=== PATIENT | female | born 1950 | race Caucasian/White ===

== ENCOUNTER 2021-08-26 07:41 | Inpatient (IN) | payer MEDICARE, OTHER ==
[2021-08-25 11:21] LABS: BASOPHILS % (AUTO) 0.4 % (0-1)
[2021-08-25 11:22] LABS: CLARITY,URINE CLEAR (Clear); COLOR,URINE YELLOW (Yellow); GLUCOSE, URINE NEGATIVE (Neg); KETONES,URINE NEGATIVE (Neg); OCCULT BLOOD,URINE TRACE-LYSED (Neg); PROTEIN,URINE Negative (Neg); UA COLLECTION TYPE CLN CATCH MIDSTREAM
[2021-08-25 11:23] LABS: EOSINOPHILS % (AUTO) 0.7 % (0-6); LYMPHOCYTES # (AUTO) 1.6 X10'3 (1.1-4.8); LYMPHOCYTES % (AUTO) 26.6 % (21-51); MEAN CORPUSCULAR HEMOGLOBIN 30.3 PG (27.0-31.0); MEAN CORPUSCULAR VOLUME 89.2 FL (78-98); MONOCYTES # (AUTO) 0.4 X10'3 (0-0.9); MONOCYTES % (AUTO) 6.5 % (2-12); NEUTROPHILS # (AUTO) 3.8 X10'3 (1.8-7.7); NEUTROPHILS % (AUTO) 65.8 % (42-75); PRE OP HEMATOCRIT 44.5 % (35.0-45.0); PRE OP HEMOGLOBIN 15.1 g/dL (12.0-16.0); PRE OP PLATELET COUNT 281 X10'3 (140-440); RED BLOOD COUNT 4.99 X10'6 (4.20-5.60); RED CELL DISTRIBUTION WIDTH 12.7 % (11.5-14.5)
[2021-08-25 11:23] LABS: LEUKOCYTE ESTERASE ,URINE NEGATIVE (Neg); NITRITES, URINE NEGATIVE (Neg); UROBILINOGEN,URINE 0.2 E.U/dL (0.2-1.0)
[2021-08-25 11:31] LABS: BACTERIA,URINE NONE SEEN /HPF (Neg); RBC,URINE NONE SEEN /HPF (0-2); SQUAMOUS EPITHELIAL CELL,UR FEW /LPF (FEW); WBC,URINE NONE SEEN /HPF (0-4)
[2021-08-25 11:44] LABS: ALBUMIN/GLOBULIN RATIO 1.1 (1.1-1.5); ALKALINE PHOSPHATASE 79 IU/L (46-116); BLOOD UREA NITROGEN 17 MG/DL (7-18); BUN/CREATININE RATIO 23.3 (6.6-38.0); CALCIUM 8.8 MG/DL (8.5-10.1); CHLORIDE 106 MMOL/L (99-107); CREATININE 0.73 MG/DL (0.40-0.90); PRE OP ALT 31 U/L (30-65); PRE OP ANION GAP 10 (8-16); PRE OP AST 21 U/L (10-37); PRE OP BILIRUB, TOTAL 0.7 MG/DL (0.0-1.0); PRE OP GLUCOSE 101 MG/DL (70-104); PRE OP POTASSIUM 3.8 MMOL/L (3.4-5.1); PRE OP SODIUM 143 MMOL/L (135-145); TOTAL CARBON DIOXIDE 26.9 MMOL/L (24-32); TOTAL PROTEIN 7.6 G/DL (6.4-8.2); eGFR 79 ML/MIN
[~2021-08-26] VITALS: Ht 167.6 cm; Wt 74.1 kg
[2021-08-26] VITALS (19 sets, daily range): BP systolic 90–152; BP diastolic 47–76
[~2021-08-26 07:41] MED LIST: CHOL100025 PO; MELA5TAB12 PO; MULT-1130 PO; cefazolin/dext.iso 2gm/50ml 50 ML IV ONE; famotidine 20mg tablet PO ONE; ringers solution, lacted 1,000 ML IV SCH
[2021-08-26] MEDS ORDERED: midazolam 1 mg/ML 2ml injection ONE (10:08)
[2021-08-26] MEDS ORDERED: fentaNYL /PF 50mcg/ml 5ml ampule ONE (10:29)
[2021-08-26] MEDS ORDERED: BUPIVAcaine/PF 2.5 mg/ml (0.25%) 30ml vial IJ ONE (10:59)
[2021-08-26] MEDS ORDERED: meperidine/PF 25mg/ml syringe IV PRN ×3 (11:20)
[2021-08-26] MEDS ORDERED: proCHLORperazine 10 MG/2 ml inj IV PRN (11:20)
[2021-08-26] MEDS ORDERED: ondansetron/PF 4mg/2ml inj IV PRN ×2 (11:20→14:35)
[2021-08-26] MEDS ORDERED: morphine 2 MG/ML inj. syringe IV PRN (11:20)
[2021-08-26] MEDS ORDERED: acetaminophen 1,000mg/100ml IV 100 ML IV PRN (11:20)
[2021-08-26] MEDS ORDERED: morphine 4 MG/ML inj SYRINge IV PRN (11:20)
[2021-08-26] MEDS ORDERED: ringers solution, lacted 1,000 ML IV SCH ×2 (11:20→14:35)
[2021-08-26] MEDS ORDERED: labetalol 20mg/4ml (5mg/ml) syringe IV PRN (11:20)
[2021-08-26] MEDS ORDERED: hydrALAZINE 20mg/ml inj. IV PRN (11:20)
[2021-08-26] MEDS ORDERED: ceFOXitin 1000 MG inj ONE ×2 (11:37)
[2021-08-26] MEDS ORDERED: propofol inj 20 ML IV ONE (11:37)
[2021-08-26] MEDS ORDERED: atropine 0.4 mg/ml 20ml vial ONE (11:38)
[2021-08-26] MEDS ORDERED: dexamethasone sod phosphate 4mg/ml inj. ONE (11:38)
[2021-08-26] MEDS ORDERED: glycopyrrolate 0.2mg/ml inj ONE (11:38)
[2021-08-26] MEDS ORDERED: ondansetron/PF 4mg/2ml inj ONE (11:38)
[2021-08-26] MEDS ORDERED: LIDOcaine 2% (20mg/ml) 5ml vial ONE (11:38)
[2021-08-26] MEDS ORDERED: rocuronium 10mg/ml inj IV ONE (11:38)
[2021-08-26] MEDS ORDERED: BUPIVACAINE liposomal/PF 13.3 MG/ML vial IM ONE (11:52)
[2021-08-26] MEDS ORDERED: LIDOcaine 1% 30ml preserv. free vial ONE (11:52)
[2021-08-26] MEDS ORDERED: BUPIVAcaine/PF 2.5mg/ml (0.25%) 10ml vial ONE (11:57)
[2021-08-26] MEDS ORDERED: neostigmine methylsulfate 1 MG/ML 10ml vial ONE (11:57)
--- NOTE | 2021-08-26 12:30 | NUR ---
PT HR 35 DR SMITH AT BEDSIDE ATROPINE 1ML GIVEN. BP STABLE CONT TO MONITOR. Addendum: 08/26/21 at 1456 by Violet Horn RN Amended: Links added.
--- NOTE | 2021-08-26 12:45 | NUR ---
PT HR IN 30'S REGULAR ASYMPTOMATIC DR SMITH NOTIFIED ATROPEN GIVEN. NO DISTRESS CONT TO MONITOR. Addendum: 08/26/21 at 1255 by Violet Horn RN Amended: Links added.
--- NOTE | 2021-08-26 13:10 | NUR ---
HR CONT TO STAY SB 30-40 PT AWAKE TO NAME BP STABLE ATROPINE 1ML GIVEN. Addendum: 08/26/21 at 1457 by Violet Horn RN Amended: Links added.
[2021-08-26] MEDS ORDERED: atropine 1 MG/1 ML vial IV ONE (13:50)
[2021-08-26] MEDS ORDERED: atropine 0.1mg/ml 10ml syringe ONE (13:51)
[2021-08-26] MEDS ORDERED: acetaminophen 325mg tablet PO PRN ×2 (14:35)
[2021-08-26] MEDS ORDERED: LIDOcaine 2% 10ml TOPICAL JELLY (Urojet) TP ONE (14:35)
[2021-08-26] MEDS ORDERED: HYDROcodone/acetaminophen 5mg/325mg tablet PO PRN (14:35)
--- NOTE | 2021-08-26 14:51 | NUR ---
PT RESTING COMFORTABLE HR LOW CALL PLACED TO DR CANTOR ORDERS TO ADMIT TO PCU RECEIVED. PLACING PT ON TELE BED ASSIGNMENT RECEIVED. Addendum: 08/26/21 at 1452 by Violet Horn RN Amended: Links added.
--- NOTE | 2021-08-26 18:37 | NUR ---
Problems reprioritized. Patient report given, questions answered & plan of care reviewed with ANJEL Gomez. Addendum: 08/26/21 at 1843 by Faina Hudson RN Gave report to ANJEL Walker not ANJEL Gomez
--- NOTE | 2021-08-26 18:40 | NUR ---
Patient in room PCU 3025. I have received report from ANJEL Eisenberg and had the opportunity to ask questions and assume patient care. Patient [id number] currently sitting in bed . Denies pain or discomfort. in no apparent distress. Dressings to abdomen CDI. abdomen soft. Bowel sound present on auscultation. Family at bedside. All safety measures maintained. Will continue monitor
[2021-08-26] MEDS: HYDROcodone/acetaminophen 10/325mg tab PO PRN (21:02)
[2021-08-27 02:00] VITALS: BP 131/62
[2021-08-27] MEDS: HYDROcodone/acetaminophen 10/325mg tab PO PRN (03:38)
--- NOTE | 2021-08-27 06:24 | NUR ---
Patient in room PCU 3025. I have received report from ANJEL Walker and had the opportunity to ask questions and assume patient care.
[2021-08-27 07:00] VITALS: BP 112/51
[2021-08-27 11:00] VITALS: BP 130/55
--- NOTE | 2021-08-27 12:00 | NUR ---
Removed davey catheter per Dr Burns, no signs of discomfort noted. Encouraged pt void every 30 minutes. Will continue to monitor.
[2021-08-27 15:00] VITALS: BP 142/59
[2021-08-27 18:00] VITALS: BP 144/57
--- NOTE | 2021-08-27 18:27 | NUR ---
Problems reprioritized. Patient report given, questions answered & plan of care reviewed with ANJEL Aaron. Pt sitting up in bed watching tv comfortably. All pt needs met at this time. No signs of distress noted at change of shift.
[2021-08-27] MEDS ORDERED: non-formulary drug (Melatonin 1 TAB) PO SCH (21:00)
[2021-08-27 22:00] VITALS: BP 139/71
[2021-08-28 02:00] VITALS: BP 109/89
--- NOTE | 2021-08-28 06:17 | NUR ---
Patient in room PCU 3025. I have received report from ANJEL Aaron and had the opportunity to ask questions and assume patient care.
--- NOTE | 2021-08-28 06:18 | NUR ---
Problems reprioritized. Patient report given, questions answered & plan of care reviewed with Mary Beth HOBBS. Addendum: 08/28/21 at 0618 by Agnieszka Gonzalez RN Amended: Links added.
[2021-08-28 07:00] VITALS: BP 149/59
[2021-08-28] MEDS ORDERED: cholecalciferol (vitamin D3) 1,000 unit (25mcg) tablet PO SCH (08:00)
[2021-08-28] MEDS ORDERED: multivitamins, therapeutics tablet PO SCH (08:00)
--- NOTE | 2021-08-28 10:55 | NUR ---
Pt stable for discharge per Dr Pagan's orders. All instructions were given to pt, questions were answered appropriately. All belongings were collected and sent with pt. No PIV. Tele DC'd, telegraph and teletype operator notified. No new RX ordered. Informed pt to follow up with Dr Austin within one week. Walked pt to lobby to wait for sister who is her ride.
== END 2021-08-28 10:50 | disposition home or self-care (01) | DRG 331 ==
LOC: UNDOADMIN 07:41 → PAS IN 07:41 → PCU 3S 15:24
PROVIDERS: ADMIT Surgery; ATTEND Surgery
PROC: 0DTN4ZZ Resection of Sigmoid Colon, Percutaneous Endoscopic Approach (ICD-10-PCS; principal; 2021-08-26 10:03)
DX: C18.7 Malignant neoplasm of sigmoid colon (principal); Z20.822 Contact with and (suspected) exposure to COVID-19
CPT/HCPCS: 36415; 80053; 81001; 82948; 84132; 85025; 86885; 86900; 86901; 86920; 87081; 87635; 88309; 93005; A4215; A4618; A7000; C1758; C9290; G0378; J0461; J0694; J1100; J2001; J2175; J2250; J2405; J2704; J2710; J3010; J3490; J7120